=== PATIENT | male | born 1980 | race Caucasian/White ===

== ENCOUNTER 2016-11-26 08:26 | Emergency (ER) | payer BC ==
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
== END 2016-11-26 10:05 | disposition home or self-care (01) ==
LOC: ER 08:26
DX: M54.5 Low back pain (principal); I10 Essential (primary) hypertension

== ENCOUNTER 2016-12-05 22:08 | Emergency (ER) | payer BC, OTHER ==
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
== END 2016-12-06 01:45 | disposition home or self-care (01) ==
LOC: ER 22:08
DX: S10.93XA Contusion of unspecified part of neck, initial encounter (principal); S30.1XXA Contusion of abdominal wall, initial encounter; V43.52XA Car driver injured in collision with other type car in traffic accident, initial encounter